=== PATIENT | male | born 1955 | race Caucasian/White ===

== ENCOUNTER → 2016-08-07 | Outpatient (CLI) | payer OTHER ==
--- NOTE | ~2016-08-07 | CT137 ---
[facility] A Service of [facility] RADIOLOGY TEXT RESULTS PATIENT: ALEXANDRE VYAS [facility] 59 UNIT #: [id number] AGE: [address]: Mary Hills MD SEX: M ORDER DR: [id number] [address] [id number] O MR#: [id number] Acc #: [id number] NAME: ALEXANDRE VYAS : 1955 SEX: M STUDY DATE/TIME: 08/07/2016 13:06 UNIT: [facility]AT ROOM: STUDY DESCRIPTION: CT Lung Screening annual Attending Physician: Mary Hills M.D. Referring Physician: Mary Hills M.D. Ordering Physician: Mary Hills M.D. Primary Care Physician: Stephen Valdes M.D. MEDICAL IMAGING REPORT This report is preliminary unless electronic signature is present EXAM CT lung cancer screening 08/07/2016 INDICATIONS Lung cancer screening, 50 pack year smoking history. PROCEDURE Unenhanced low-dose CT of the chest performed per lung cancer screening protocol. This CT exam was performed with one or more of the following radiation dose reduction techniques: automatic exposure control, adjustment of mA and/or kV according to patient size, and iterative reconstruction. COMPARISON STUDIES 06/28/2015 FINDINGS No suspicious pulmonary nodule. No adenopathy. No acute findings in the included upper abdomen. No aggressive appearing bone lesion. IMPRESSION 1. No suspicious pulmonary nodule. 2. Lung RADS category 1 negative. Per the ACR lung RADS recommendations suggest patient continue with annual low-dose lung cancer screening. Dictated by... Keegan Siu M.D. THIS IS AN ELECTRONICALLY VERIFIED REPORT Keegan Siu M.D. at 08/08/2016 7:11 AM BRI/kristina [facility] A Service [facility] RADIOLOGY TEXT RESULTS PATIENT: ALEXANDRE VYAS [facility] 59 UNIT #: [id number] AGE: [address]: Mary Hills MD SEX: M ORDER DR: TD: 08/07/2016 16:41 JOB #: [id number] MEDICAL IMAGING REPORT Page 1 of 1 COPY
== END | disposition home or self-care (01) ==
LOC: CCAT 12:55
DX: F17.210 Nicotine dependence, cigarettes, uncomplicated (principal)
CPT/HCPCS: G0297